=== PATIENT | male | born 1980 | race Caucasian/White ===

== ENCOUNTER 2020-01-03 07:18 | Outpatient (REF) | payer MEDICARE, MEDICAID, SELFPAY | END 2020-01-03 07:19 | disposition home or self-care (01) | LOC: HO.LAB 07:18 | PROVIDERS: Visit Provider Internal Medicine | DX: Z20.828 Contact with and (suspected) exposure to other viral communicable diseases (principal) | CPT/HCPCS: C9803; U0003 ==

== ENCOUNTER 2024-09-16 18:38 | Emergency (ER) | payer MEDICARE, SELFPAY ==
--- NOTE | ~2024-09-16 | XR_ITS ---
CLINICAL HISTORY: PAIN 2 view left femur Comparison: None provided Findings: No fracture or subluxation. Normal osseous mineralization. Moderate arthritic changes of the left hip and knee. No acute soft tissue abnormality. Impression: 1. No acute findings identified. This document has been electronically signed by: Walter Jacobs MD on 09/16/2024 21:03:45
--- NOTE | ~2024-09-16 | US_ITS ---
CLINICAL HISTORY: left lower extremity swelling Venous duplex ultrasound left lower extremity Comparison: None provided Findings: Somewhat limited exam due to patient body habitus and soft tissue edema. No evidence of left lower extremity deep vein thrombosis although some of the veins were not clearly compressible. There is evidence of superficial thrombosis starting 2.3 cm from the common femoral vein junction and extending along the entire course. IMPRESSION: 1. Negative for left lower extremity deep vein thrombosis with the caveat that exam was substantially limited due to patient body habitus and overlying edema. 2. Evidence of superficial thrombosis within the greater saphenous vein not clearly extending past the femoral saphenous junction. This document has been electronically signed by: Walter Jacobs MD on 09/16/2024 21:04:11
[2024-09-16 18:44] VITALS: BP 141/78; PULSE 100; RESP 16; TEMP 36; O2SAT 96; BMI 50.1
--- NOTE | 2024-09-16 18:57 | ED_ITS ---
HPI - General Adult General Chief complaint: Skin/Abscess/Foreign Body Stated complaint: allergic reaction bite swollen left LG thigh down Time Seen by Provider: 09/16/24 21:13 Source: patient and family Limitations: language barrier and other (Developmental delay) History of Present Illness ED Provider: Alison Solares PA-C HPI narrative: 44-year-old male with a history of morbid obesity, developmental delay who presents with redness and swelling to left medial thigh x3 days. Patient denies injury or fever. Pain worse with movement and palpation of the skin. Patient's mother thinks that he ?was bitten by an insect?. Related Data Previous Rx's ?Medication ?Instructions ?Recorded doxycycline hyclate 100 mg capsule 100 mg PO BID #13 c aps 09/16/24 naproxen 500 mg tablet 500 mg PO BID PRN pain #14 t abs 09/16/24 Allergies Allergy/AdvReac Type Severity Reaction Status Date / Time sulfamethoxazole (From Allergy Intermediate RASH Verified 09/16/24 18:50 BACTRIM) trimethoprim (From BACTRIM) Allergy Intermediate RASH Verified 09/16/24 18:50 Sulfamethoxazole Allergy Unknown rash Uncoded 03/23/19 00:00 Review of Systems 2 Review of Systems: Yes all other systems are reviewed and are negative Constitutional: Constitutional: Denies fatigue and Denies fever(s) Cardiovascular: Cardiovascular: Denies chest pain and Denies dyspnea Respiratory: Respiratory: Denies dyspnea Musculoskeletal: Musculoskeletal: Denies arthralgias and Denies joint swelling Integumentary/Breasts: Skin/Breast: Reports erythema, Denies rash, Denies skin swelling, Denies skin ulcer, Reports sores and Denies wounds Endocrine: Endocrine: Denies fatigue PMFSH Past Medical History Attestation statement: The following information was validated with the patient. Social History Social History Smoked in Last 30 Days: No Use of substances other than those prescribed or required for medical reasons: No Advance Directives: No Advance Directives Information Provided: No Physical Exam ED Exam Exam: Alert Vital Signs: Vital Signs - 24 hr 09/16/24 18:44 09/16/24 22:22 09/16/24 22:23 Temperature 96.8 F 97.4 F Pulse Rate 100 76 76 Respiratory Rate 16 16 16 Blood Pressure 141/78 H 138/74 138/74 Pulse Oximetry 96 99 99 Oxygen Delivery Method Room Air Room Air Room Air BMI result Body Mass Index 50.1 Const Orientation/consciousness: patient oriented x3 Resp Effort & Inspection: normal respiratory effort Cardio Other: Normal peripheral perfusion Skin Other: Warm dry no rash Neuro General: patient oriented x3, gait normal, no focal motor deficits and CN's II- XI intact bilaterally Extrem Other: Mild erythema noted over upper left medial thigh, there was no varicosity that is obvious and present, there is a region that is subtly indurated, appears to be a potential infected follicle Psych Other: Cooperative, child like Course Course Course Narrative: RME: 44 yold male presents to the ED for left thight redness/swelling. Patient states its itchy. Mother thinks patient was bitten in thigh. Physical exam positive for left thigh swelling and redness. Ultrasound labs x-ray ordered Medications Administered Discontinued Medications Generic Name Dose Route Start Last Admin Trade Name Freq PRN Reason Stop Dose Admin Doxycycline Monohydrate 100 mg 09/16/24 21:42 09/16/24 21:59 Doxycycline Monohydrate 100 Mg Capsule PO 09/16/24 21:43 100 mg ONCE ONE Administration Naproxen 500 mg 09/16/24 21:54 09/16/24 21:59 Naproxen 500 Mg Tablet PO 09/16/24 21:55 500 mg ONCE ONE Administration Medical Decision Making Medical Decision Making [facility] Narrative: 44-year-old male with a history of morbid obesity, developmental delay who presents with redness and swelling to left medial thigh x3 days. Patient denies injury or fever. Pain worse with movement and palpation of the skin. Patient's mother thinks that he ?was bitten by an insect?. Problem: Morbid obesity History: Per patient's mom I have considered the following differential diagnoses: Cellulitis, purulent cellulitis, thrombophlebitis, DVT, abscess, varicose vein, Plan: In addition to screening labs, an x-ray was obtained of the thigh, clearly no fracture or dislocation, there was no traumatic injury. Ultrasound also ordered, there was no DVT, however there is thrombophlebitis of the saphenous. I can not palpate or see it, secondary to patient's habitus, there was mild erythema within this area, and a region of folliculitis, we will treat with the NSAIDs and doxycycline I have independently reviewed the following tests: Labs: No leukocytosis, not anemic, ESR mildly elevated at 22, CRP elevated at 5.17 Ultrasound left lower extremity: Findings: Somewhat limited exam due to patient body habitus and soft tissue edema. No evidence of left lower extremity deep vein thrombosis although some of the veins were not clearly compressible. There is evidence of superficial thrombosis starting 2.3 cm from the common femoral vein junction and extending along the entire course. IMPRESSION: 1. Negative for left lower extremity deep vein thrombosis with the caveat that exam was substantially limited due to patient body habitus and overlying edema. 2. Evidence of superficial thrombosis within the greater saphenous vein not clearly extending past the femoral saphenous junction. X-ray left femur:Findings: No fracture or subluxation. Normal osseous mineralization. Moderate arthritic changes of the left hip and knee. No acute soft tissue abnormality. Impression: 1. No acute findings identified. Lab Data 09/16/24 19:23 Labs: Lab Results 09/16/24 Range/Units 19:23 WBC 5.3 (4.8-10.8) X10*3/uL RBC 4.26 L (4.60-5.80) X10*6/uL Hgb 11.9 L (14.0-18.0) g/dl Hct 36.9 L (42.0-52.0) % MCV 86.6 (80.0-98.0) fL MCH 27.9 (27.0-33.0) pg MCHC 32.2 (31.0-36.0) g/dl RDW 14.1 (11.0-16.0) % Plt Count 260 (160-400) X10*3/uL MPV 11.1 (9.4-12.4) fL Immature Gran % (Auto) 2.3 H (0.0-0.4) % Neut % (Auto) 59.4 (45-73) % Lymph % (Auto) 26.5 (20-40) % Pender % (Auto) 7.3 (2-11) % Eos % (Auto) 3.9 (0-4) % Baso % (Auto) 0.6 (0-2) % Lymph # (Auto) 1.4 (1.2-4.9) X10*3/uL Pender # (Auto) 0.4 (0.1-1.2) X10*3/uL Eos # (Auto) 0.2 (0.0-0.4) X10*3/uL Baso # (Auto) 0.0 (0.0-0.2) X10*3/uL Abs Immat Gran (auto) 0.12 H (0.00-0.03) X10*3/uL Absolute Neuts (auto) 3.2 (2.0-8.3) x10*3/uL Absolute Nucleated RBC 0.000 (0.0-0.012) X10*3/uL Nucleated RBC % (auto) 0.0 (0.0-0.2) /100WBC ESR 22 H (0-15) MM/HR PT 10.7 L (10.9-12.4) SEC INR 0.9 (0.9-1.1) APTT 31.0 (26.0-36.8) SEC C-Reactive Protein 5.17 H (< or = 0.50) mg/dL Discharge Plan Discharge Clinical Impression: Thrombophlebitis of left saphenous vein, Cellulitis Patient Disposition: Home, Self-Care Instructions: Cellulitis (ED), Superficial Thrombophlebitis (ED) Additional Instructions: The x-ray of the leg was negative. The ultrasound of the left lower extremity was negative for a deep clot in the leg. You were found to have inflammation of 1 of the superficial veins. This is called thrombophlebitis. See home care instructions. Use the naproxen as directed for your pain, take it with food. It appears you may be developing cellulitis in the same region from an infected hair follicle, take the doxycycline as directed. Follow up with your primary care provider as needed. Prescriptions: New naproxen 500 mg tablet 500 mg PO BID PRN (Reason: pain) Qty: 14 0RF doxycycline hyclate 100 mg capsule 100 mg PO BID Qty: 13 0RF Interventions: ED Discharge Assessment Last Done: 09/16/24 22:23 Discharge Date/Time: 09/16/24 22:24 Print Language: Bengali
[2024-09-16 19:27] LABS: MANUAL DIFF FLAG NO
[2024-09-16 19:28] LABS: Hematocrit 36.9 % (42.0-52.0); Hemoglobin 11.9 g/dl (14.0-18.0); Imm Gran Abs Auto 0.12 X10*3/uL (0.00-0.03); Imm Gran Pct Auto 2.3 % (0.0-0.4); Lymphocytes Absolute Auto 1.4 X10*3/uL (1.2-4.9); Mean Corpuscular HGB Conc 32.2 g/dl (31.0-36.0); Mean Corpuscular Hemoglobin 27.9 pg (27.0-33.0); Mean Corpuscular Volume 86.6 fL (80.0-98.0); NRBC Abs Auto 0.000 X10*3/uL (0.0-0.012); NRBC Pct Auto 0.0 /100WBC (0.0-0.2); Platelet Count 260 X10*3/uL (160-400); Red Blood Count 4.26 X10*6/uL (4.60-5.80); White Blood Count 5.3 X10*3/uL (4.8-10.8)
--- NOTE | 2024-09-16 19:34 | PC.NURSE ---
Pt in US currently. Radiology staff notified to bring pt to ED 24 afterward
[2024-09-16 19:36] LABS: INTERNATIONAL NORM RATIO 0.9 (0.9-1.1); Prothrombin Time 10.7 SEC (10.9-12.4)
[2024-09-16 19:37] LABS: Partial Thromboplastin Time 31.0 SEC (26.0-36.8)
[2024-09-16 22:22] VITALS: BP 138/74; PULSE 76; RESP 16; O2SAT 99
[2024-09-16 22:23] VITALS: BP 138/74; PULSE 76; RESP 16; TEMP 36.3; O2SAT 99
== END 2024-09-16 22:24 | disposition home or self-care (01) ==
PROVIDERS: Physician Assistant; Emergency Provider Emergency Medicine
DX: I80.02 Phlebitis and thrombophlebitis of superficial vessels of left lower extremity (principal); R60.0 Localized edema; Z79.899 Other long term (current) drug therapy
CPT/HCPCS: 36415; 73552; 85025; 85610; 85652; 85730; 86140; 93971; 99284

== ENCOUNTER → 2024-09-16 18:52 | Outpatient (BNV) | payer MEDICARE, SELFPAY | PROVIDERS: Emergency Provider Emergency Medicine; Visit Provider Radiology Diagnostic Radiology | DX: R22.42 Localized swelling, mass and lump, left lower limb (principal); M79.652 Pain in left thigh | CPT/HCPCS: 73552; 93971 ==